=== PATIENT | male | born 1990 | race Caucasian/White ===

== ENCOUNTER 2020-07-03 00:39 | Emergency (ER) | payer OTHER, MEDICAID, SELFPAY ==
[2020-07-03 00:47] VITALS: BP 146/88; PULSE 83; RESP 16; TEMP 35.9; O2SAT 97; BMI 21.8
[2020-07-03] MEDS: BUPIVACAINE 0.5% W/ EPI (PF) 30 ML VIAL 5 ML SUBCUT (00:50)
[2020-07-03] MEDS: KETOROLAC 60 MG/2 ML VIAL IM (01:11)
--- NOTE | 2020-07-03 01:17 | ED.DENTAL ---
HPI - Dental/Oral General Chief complaint: Dental/Oral Stated complaint: toothache x3 days Time Seen by Provider: 07/03/20 00:42 Source: patient Mode of arrival: Ambulatory Limitations: no limitations History of Present Illness HPI Narrative: 29-year-old male daily smoker and occasional drinker without her chronic medical problems presents with a chief complaint of severe left upper dental pain for the past few days. He states that while eating he broke a tooth and since then he has had increasing pain. He has done little to address the pain such as Tylenol, Motrin or other. He denies any fever chills and has no facial swelling. He states it is made worse when eating or drinking and improves with rest MD Complaint: tooth pain Teeth map: 1. Onset (ago): day(s) Duration: constant Severity: severe Relieving factors: nothing Exacerbating factors: chewing, cold, heat and drinking fluids Context: history of dental caries Treatment prior to arrival: none Related Data Previous Rx's Medication Instructions Recorded ketorolac 10 mg PO Q6H PRN #14 tab 07/03/20 Allergies Allergy/AdvReac Type Severity Reaction Status Date / Time Sulfa (Sulfonamide Allergy Verified 07/03/20 00:47 Antibiotics) Review of Systems Constitutional Constitutional: Denies chills and Denies fever(s) Eyes Eyes: Denies change in vision and Denies irritation ENT Ears, Nose, Mouth, and Throat: Denies change in voice, Reports dental pain, Denies dizziness, Denies neck pain, Denies sore throat and Denies throat swelling Cardiovascular Cardiovascular: Denies chest pain and Denies dyspnea Respiratory Respiratory: Denies cough, Denies dyspnea and Denies wheezing Gastrointestinal Gastrointestinal: Denies abdominal pain, Denies change in bowel habits, Denies diarrhea, Denies nausea and Denies vomiting Musculoskeletal Musculoskeletal: Denies neck pain and Denies numbness Integumentary/Breasts Skin/Breast: Denies pruritus, Denies erythema, Denies rash and Denies wounds Neurologic Neurologic: Denies behavioral changes, Denies confusion, Denies dizziness and Denies numbness Psychiatric Psychiatric: Denies anxiety, Denies behavioral changes, Denies confusion, Denies depression, Denies homicidal ideation and Denies suicidal ideation Endocrine Endocrine: Denies flushing Hematologic/Lymphatic Hematologic/Lymphatic: Denies easy bruising Allergic/Immunologic Allergic/Immunologic: Denies urticaria, Denies throat swelling and Denies wheezing Patient History Social History Smoking Status: Current every day smoker Smoking Status: Current every day smoker Substance Use Type: marijuana Exam Narrative Exam Narrative: GEN: AOx3 and in mild distress EYES: Pupils are equal, round, and reactive to light and accommodation. Extraoccular muscles are intact bilaterally. There is no subconjunctival hemorrhage or exudate. ENT: Moist mucous membranes. No intraoral swelling or lesions. Cracked tooth #15, no drainage CHEST: Lungs are clear to auscultation bilaterally and free of wheezes, rales, or rhonchi. Heart rate is regular rhythm, there are no murmurs, clicks, rubs, or gallops. There is no chest wall tenderness. ABD: Abdomen is soft and nontender. There is no guarding or rebound. Bowel sounds are normal in all 4 quadrants. There is no mass or organomegaly. EXT: Full painless ROM of all extremities with no loss of sensation or strength. SKIN: Warm, pink, and dry. No erythema or rash Initial Vital Signs Initial Vital Signs: Vital Signs Temperature 96.6 F L 07/03/20 00:47 Pulse Rate 83 07/03/20 00:47 Respiratory Rate 16 07/03/20 00:47 Blood Pressure 146/88 H 07/03/20 00:47 Pulse Oximetry 97 07/03/20 00:47 Procedures Nerve Block Nerve Block 1: Time out performed: Yes Local Anesthetic: bupivacaine 0.25% and with epi Amount of anesthesia used (mL): 3 Side: left Intraoral Nerve Block: superior alveolar Procedure Successful: Yes Patient Tolerated Procedure: Well Complications: none Course Orders Ordered: Discontinued Medications Bupivacaine HCl/Epinephrine Bitart (Bupivacaine 0.5% W/ Epi (Pf) 30 Ml Vial) 5 ml SUBCUT NOW ONE Stop: 07/03/20 00:44 Last Admin: 07/03/20 00:50 Dose: 5 ml Documented by: PETR Ketorolac Tromethamine (Ketorolac 60 Mg/2 Ml Vial) 60 mg IM NOW ONE Stop: 07/03/20 00:56 Last Admin: 07/03/20 01:11 Dose: 60 mg Documented by: PETR Vital Signs Vital signs: Vital Signs - 8 hr 07/03/20 00:47 Temperature 96.6 F L Pulse Rate 83 Respiratory Rate 16 Blood Pressure 146/88 H Pulse Oximetry 97 Discharge Plan Departure Patient Disposition: Home Clinical Impression: Toothache Instructions: DI for Dental Pain Activity Restrictions/Additional Instructions: *You have been diagnosed with [ dental pain] *What to do: *Take medications as directed *Follow up with your dentist as soon as possible, call for an appointment. Let them know you were seen in the Emergency Department and that we ask that you be seen in follow up *Return to ER if you should have any new, worsening or concerning symptoms, such as [ fever > 101F, facial swelling or other bothersome symptoms] Prescriptions: New ketorolac 10 mg tablet 10 mg PO Q6H PRN (Reason: pain) Qty: 14 RF: 0 Referrals: Red Mendiola DMD [Physician] -
== END 2020-07-03 01:14 | disposition home or self-care (01) ==
PROVIDERS: Emergency Provider Emergency Medicine
DX: K08.89 Other specified disorders of teeth and supporting structures (principal)
CPT/HCPCS: 64450; 96372; 99281; 99283; J1885

== ENCOUNTER 2021-04-12 22:21 | Emergency (ER) | payer OTHER, MEDICAID, SELFPAY ==
[2021-04-12 22:26] VITALS: BP 131/81; PULSE 100; RESP 18; TEMP 36.8; O2SAT 94; BMI 21.2
[2021-04-12 22:58] LABS: Ur Creatinine Normal (Normal); Ur Specific Gravity Normal (Normal)
[2021-04-12 22:59] LABS: UR Morphine/Opiate cutoff 300 Positive (Negative); Urine Amphetamines Positive (Negative); Urine Barbiturates Negative (Negative); Urine Benzodiazepines Negative (Negative); Urine Cocaine Negative (Negative); Urine MDMA Negative (Negative); Urine Methadone Negative (Negative); Urine Methamphetamines Positive (Negative); Urine Oxycodone Negative (Negative); Urine Phencyclidine Negative (Negative); Urine Tetrahydrocannabinol Negative (Negative); Urine Tricyclic Antidepressant Negative (Negative); Urine pH Normal (Normal)
[2021-04-12 23:00] LABS: Add Manual Diff / Slide Review NO; BUN Creatinine Ratio 13.1 (6-22); Basophils Absolute Auto 100 /uL (0-100); Basophils Percent Auto 0.7 % (0-2); Blood Urea Nitrogen 8 mg/dL (9-20); Calcium 10.1 mg/dL (8.4-10.2); Carbon Dioxide 26 mmol/L (22-32); Chloride 105 mmol/L (98-107); Eosinophils Absolute Auto 0 /uL (0-450); Eosinophils Percent Auto 0.4 % (2-4); Estimated Glomerular Filt Rate > 60.0 mL/min (>60); Ethanol (ETOH) 11 mg/dL; Glucose 99 mg/dL (70-100); HEMOLYSIS < 15 (0-50); Hematocrit 46.5 % (41-53); Hemoglobin 15.7 g/dL (13.5-17.5); Lymphocytes Absolute Auto 1400 /uL (1100-4500); Lymphocytes Percent Auto 13.3 % (25-40); Mean Corpuscular HGB Conc 33.8 % (30-36); Mean Corpuscular Hemoglobin 29.6 PG (26-34); Mean Corpuscular Volume 87.6 fL (80-100); Monocytes Absolute Auto 500 /uL (0-900); Monocytes Percent Auto 4.3 % (3-14); Neutrophils Absolute Auto 8800 /uL (1500-7000); Neutrophils Percent Auto 81.3 % (50-75); Platelet Count 276 X10^3/uL (150-400); Potassium 4.2 mmol/L (3.4-5.1); Red Cell Distribution Width 13.5 % (11.6-14.8); Sodium 142 mmol/L (137-145); White Blood Cell Count 10.8 X10^3/uL (4.5-11.0)
[2021-04-12] MEDS: SODIUM CHLORIDE 0.9% 1,000 ML 1000 ML IV (23:20)
--- NOTE | 2021-04-13 00:08 | ED.GENADULT ---
HPI - General Adult General Chief complaint: Toxicology Problem Stated complaint: Withdrawls Time Seen by Provider: 04/12/21 22:32 Source: patient and EMS Mode of arrival: EMS Limitations: no limitations History of Present Illness HPI narrative: Patient is a 30-year-old male. Does admit to be a heroin abuser and also methamphetamine abuser. States that his last usage of these medications was 2 days ago. He also occasionally drinks alcohol and did drink alcohol today. Was brought in by EMS for evaluation of withdrawal symptoms. Is having body aches and nausea. He did receive Zofran by EMS prior to arrival. He states that his mother was the one who called EMS. He did not know that they were coming to pick him up. [place]. He did voluntarily come with EMS. Has been to rehab in the past and states that he is willing to go back to rehab. Denies any other medical problems. Related Data Previous Rx's Medication Instructions Recorded ketorolac 10 mg tablet 10 mg PO Q6H PRN #14 tab 07/03/20 Allergies Allergy/AdvReac Type Severity Reaction Status Date / Time Sulfa (Sulfonamide Allergy Severe Anaphylaxis Verified 04/12/21 22:28 Antibiotics) Review of Systems Constitutional Constitutional: Denies fever(s) Cardiovascular Cardiovascular: Reports as per HPI and Reports system reviewed and no additional complaints, except as documented Respiratory Respiratory: Reports as per HPI and Reports system reviewed and no additional complaints, except as documented Gastrointestinal Gastrointestinal: Reports as per HPI Genitourinary Genitourinary: Reports system reviewed and no additional complaints, except as documented Musculoskeletal Musculoskeletal: Reports system reviewed and no additional complaints, except as documented Integumentary/Breasts Skin/Breast: Reports system reviewed and no additional complaints, except as documented Neurologic Neurologic: Reports system reviewed and no additional complaints, except as documented and Reports as per HPI Hematologic/Lymphatic On Anticoagulants: No Patient History Medical History Heroin abuse Methamphetamine abuse Social History Smoking Status: Current every day smoker Smoking Status: Current every day smoker tobacco type: cigarettes alcohol intake frequency: a few times a week Alcohol type: hard liquor Substance Use Type: marijuana, heroin and methamphetamine Exam Initial Vital Signs Initial Vital Signs: Vital Signs Temperature 98.3 F 04/12/21 22:26 Pulse Rate 100 H 04/12/21 22:26 Respiratory Rate 18 04/12/21 22:26 Blood Pressure 131/81 04/12/21 22:26 Pulse Oximetry 94 04/12/21 22:26 HENMT Head: normal to inspection Resp Effort & Inspection: normal respiratory effort Cardio Rate: regular rate Skin General: no rashes or lesions noted Neuro General: patient alert, patient awake, patient oriented x3 and moves all extremities Extrem General: normal to inspection Psych Appearance: disheveled Mental Status: mental status grossly normal Speech and Movement: speech and movement normal Mood: congruent mood Affect: sad and blunted Attitude: cooperative Course Orders Ordered: ED Orders 04/12/21 22:30 Basic Metabolic Panel Stat Complete Blood Count AUTO DIFF Stat Ethanol (ETOH) Stat 04/12/21 22:35 Urine Drug Screen, Rapid Stat 04/13/21 01:05 COVID19 -Nasal swab/Pre-Proc Stat Discontinued Medications Sodium Chloride (Normal Saline 0.9%) 1,000 mls @ 1,000 mls/hr IV BOLUS ONE Stop: 04/12/21 23:45 Last Infusion: 04/13/21 00:30 Dose: 0 mls/hr Documented by: Admin: 04/12/21 23:20 Dose: 1,000 mls/hr Documented by: KEYUR Lorazepam (Lorazepam 0.5 Mg Tablet) 1 mg PO NOW ONE Stop: 04/13/21 04:56 Last Admin: 04/13/21 05:02 Dose: 1 mg Documented by: ANDRIY Lorazepam (Lorazepam 0.5 Mg Tablet) 1 mg PO NOW ONE Stop: 04/13/21 04:56 Last Admin: 04/13/21 05:02 Dose: Not Given Documented by: ANDRIY Vital Signs Vital signs: Vital Signs - 8 hr 04/12/21 22:26 Temperature 98.3 F Pulse Rate 100 H Respiratory Rate 18 Blood Pressure 131/81 Pulse Oximetry 94 Medical Decision Making Lab Data Lab results reviewed: Yes I reviewed the patient's lab results. Result diagrams: 04/12/21 22:30 04/12/21 22:30 Labs: Lab Results 04/12/21 04/12/21 04/12/21 Range/Units 22:30 22:30 22:35 WBC 10.8 (4.5-11.0) X10^3/uL RBC 5.30 (4.5-5.9) X10^6/uL Hgb 15.7 (13.5-17.5) g/dL Hct 46.5 (41-53) % MCV 87.6 (80-100) fL MCH 29.6 (26-34) PG MCHC 33.8 (30-36) % RDW 13.5 (11.6-14.8) % Plt Count 276 (150-400) X10^3/uL Neut % (Auto) 81.3 H (50-75) % Lymph % (Auto) 13.3 L (25-40) % [place] % (Auto) 4.3 (3-14) % Eos % (Auto) 0.4 L (2-4) % Baso % (Auto) 0.7 (0-2) % Neut # (Auto) 8800 H (8759-3621) /uL Lymph # (Auto) 1400 (2348-5937) /uL [place] # (Auto) 500 (0-900) /uL Eos # (Auto) 0 (0-450) /uL Baso # (Auto) 100 (0-100) /uL Sodium 142 (137-145) mmol/L Potassium 4.2 (3.4-5.1) mmol/L Chloride 105 (98-107) mmol/L Carbon Dioxide 26 (22-32) mmol/L BUN 8 L (9-20) mg/dL Creatinine 0.61 L (0.66-1.25) mg/dL Estimated GFR > 60.0 (>60) mL/min BUN/Creatinine Ratio 13.1 (6-22) Glucose 99 (70-100) mg/dL Calcium 10.1 (8.4-10.2) mg/dL U Opiates 300ng/mL cut Positive H (Negative) Ur Oxycodone Screen Negative (Negative) Urine Methadone Screen Negative (Negative) Ur Barbiturates Screen Negative (Negative) U Tricyclic Antidepress Negative (Negative) Ur Phencyclidine Scrn Negative (Negative) Ur Amphetamines Screen Positive H (Negative) U Methamphetamines Scrn Positive H (Negative) Ur MDMA Scrn (Ecstasy) Negative (Negative) U Benzodiazepines Scrn Negative (Negative) Urine Cocaine Screen Negative (Negative) U Marijuana (THC) Screen Negative (Negative) Ethyl Alcohol 11 H ( - 10) mg/dL SARS-CoV-2 (PCR) (Negative) 04/13/21 Range/Units 01:05 WBC (4.5-11.0) X10^3/uL RBC (4.5-5.9) X10^6/uL Hgb (13.5-17.5) g/dL Hct (41-53) % MCV (80-100) fL MCH (26-34) PG MCHC (30-36) % RDW (11.6-14.8) % Plt Count (150-400) X10^3/uL Neut % (Auto) (50-75) % Lymph % (Auto) (25-40) % [place] % (Auto) (3-14) % Eos % (Auto) (2-4) % Baso % (Auto) (0-2) % Neut # (Auto) (7115-8306) /uL Lymph # (Auto) (4013-7069) /uL [place] # (Auto) (0-900) /uL Eos # (Auto) (0-450) /uL Baso # (Auto) (0-100) /uL Sodium (137-145) mmol/L Potassium (3.4-5.1) mmol/L Chloride (98-107) mmol/L Carbon Dioxide (22-32) mmol/L BUN (9-20) mg/dL Creatinine (0.66-1.25) mg/dL Estimated GFR (>60) mL/min BUN/Creatinine Ratio (6-22) Glucose (70-100) mg/dL Calcium (8.4-10.2) mg/dL U Opiates 300ng/mL cut (Negative) Ur Oxycodone Screen (Negative) Urine Methadone Screen (Negative) Ur Barbiturates Screen (Negative) U Tricyclic Antidepress (Negative) Ur Phencyclidine Scrn (Negative) Ur Amphetamines Screen (Negative) U Methamphetamines Scrn (Negative) Ur MDMA Scrn (Ecstasy) (Negative) U Benzodiazepines Scrn (Negative) Urine Cocaine Screen (Negative) U Marijuana (THC) Screen (Negative) Ethyl Alcohol ( - 10) mg/dL SARS-CoV-2 (PCR) Negative (Negative) Urine Dip Bedside Urine Glucose Negative Bedside Urine Bilirubin - Negative Bedside Urine Ketone - Negative Urine Specific [place] 1.010 Bedside Urine Occult Blood - Negative Bedside Urine pH 7.5 Bedside Urine Protein - Negative Bedside Urine Urobilinogen - Negative Bedside Urine Nitrite - Negative Bedside Urine Leukocytes - Negative Esterase Point of care testing: Urine Dip Bedside Urine Glucose Negative Bedside Urine Bilirubin - Negative Bedside Urine Ketone - Negative Urine Specific [place] 1.010 Bedside Urine Occult Blood - Negative Bedside Urine pH 7.5 Bedside Urine Protein - Negative Bedside Urine Urobilinogen - Negative Bedside Urine Nitrite - Negative Bedside Urine Leukocytes - Negative Esterase MDM Narrative Medical decision making narrative: Patient is medically cleared. He is voluntary for treatment. He provided intake interview with facility in [facility]. He was accepted at this facility. Will discharge patient to that facility. Patient is stable. Discharge Plan Departure Patient Disposition: Home Clinical Impression: Methamphetamine abuse, Heroin abuse Instructions: DI for Substance Use Disorder Activity Restrictions/Additional Instructions: You are being discharged to be transported to rehab. I wish you the best of luck with this. You can return to the Emergency did any point if needed. Prescriptions: No Action ketorolac 10 mg tablet 10 mg PO Q6H PRN (Reason: pain) Qty: 14 RF: 0
[2021-04-13 01:43] LABS: COVID19 -Nasal RAPID Negative (Negative)
--- NOTE | 2021-04-13 02:28 | PC.NURSE ---
Called [facility] in [place], PT accepted for detox. Informed of pt coming closer to 0700.
[2021-04-13] MEDS: LORazepam 0.5 MG TABLET 1 MG PO (05:02)
[2021-04-13] MEDS: ONDANSETRON 4 MG ODT SL (06:14)
[2021-04-13 06:27] VITALS: BP 127/60; PULSE 83; RESP 15; O2SAT 99
== END 2021-04-13 06:28 | disposition home or self-care (01) ==
PROVIDERS: Emergency Provider Emergency Medicine
DX: F15.10 Other stimulant abuse, uncomplicated (principal); F11.10 Opioid abuse, uncomplicated; Z20.822 Contact with and (suspected) exposure to COVID-19
CPT/HCPCS: 36415; 80048; 80305; 80320; 81003; 85025; 87635; 96360; 99284; C9803